=== PATIENT | male | born 1965 | race Caucasian/White ===

== ENCOUNTER 2018-09-12 20:06 | Inpatient (IN) | payer BC ==
[~2018-09-12] VITALS: Ht 180.3 cm; Wt 92.6 kg
[2018-09-12 20:07] VITALS: Ht 180.3 cm; Wt 92.6 kg
[2018-09-12 20:44] LABS: BASOPHIL % 0.2 % (0-2); PLATELET COUNT 303 x10^3mcL (130-400); RED CELL DISTRIBUTION WIDTH 13.8 % (11.5-14.5)
[2018-09-12 20:51] LABS: CARBON DIOXIDE 24.7 mmol/L (21-32); CHLORIDE SERUM 100 mmol/L (98-107); POTASSIUM SERUM 3.8 mmol/L (3.5-5.1); SODIUM SERUM 134 mmol/L (136-145)
[2018-09-12] MEDS ORDERED: METFORMIN HYDR500 M1 PO (20:51)
[2018-09-12 21:04] LABS: ALKALINE PHOSPHATASE 88 U/L (46-116); BILIRUBIN TOTAL 0.61 mg/dL (0.20-1.00)
[2018-09-12 21:18] LABS: ALT/SGPT 24 U/L (16-63)
[2018-09-12 21:19] LABS: CHOLESTEROL 146 mg/dL (<200); GLUCOSE SERUM 392 mg/dL (74-106)
[2018-09-12 21:26] LABS: CHOLESTEROL/HDL RATIO 6.3; HDL CHOLESTEROL 23 mg/dL (40-60); TRIGLYCERIDES 1409 mg/dL (<150)
[2018-09-12 21:34] LABS: AMPHETAMINE QUAL UR NONE DETECTED (See below)
[2018-09-12 21:41] LABS: CREATININE SERUM 0.9 mg/dL (0.7-1.3); GFR1 > 60 mL/min
[2018-09-12 21:42] LABS: AST/SGOT 41 U/L (15-37); CALCIUM 7.9 mg/dL (8.5-10.1)
[2018-09-12 22:14] LABS: ALBUMIN 3.4 g/dL (3.4-5.0); TOTAL PROTEIN, SERUM 7.4 g/dL (6.4-8.2)
[2018-09-12 23:44] VITALS: BP 140/86
[2018-09-13 05:44] VITALS: BP 114/69
[2018-09-13 06:48] LABS: CARBON DIOXIDE 24.8 mmol/L (21-32); CHLORIDE SERUM 101 mmol/L (98-107); POTASSIUM SERUM 3.7 mmol/L (3.5-5.1); SODIUM SERUM 134 mmol/L (136-145)
[2018-09-13 06:49] LABS: ALKALINE PHOSPHATASE 71 U/L (46-116); BILIRUBIN TOTAL 0.5 mg/dL (0.20-1.00); CALCIUM 8.1 mg/dL (8.5-10.1); CREATININE SERUM 0.9 mg/dL (0.7-1.3); GFR1 > 60 mL/min; GLUCOSE SERUM 261 mg/dL (74-106)
[2018-09-13 07:31] LABS: ALBUMIN 3.1 g/dL (3.4-5.0); TOTAL PROTEIN, SERUM 14.2 g/dL (6.4-8.2)
[2018-09-13 07:44] LABS: AST/SGOT 23 U/L (15-37)
[2018-09-13 09:03] LABS: ALT/SGPT 18 U/L (16-63)
[2018-09-13 09:09] VITALS: BP 116/71
[2018-09-13 13:39] VITALS: BP 117/63
[2018-09-13 17:46] VITALS: BP 110/65
[2018-09-13 20:02] VITALS: BP 103/65
[2018-09-14 05:07] VITALS: BP 103/60
[2018-09-14 07:07] LABS: ALKALINE PHOSPHATASE 66 U/L (46-116); ALT/SGPT 21 U/L (16-63); AST/SGOT 15 U/L (15-37); BILIRUBIN TOTAL 0.4 mg/dL (0.20-1.00); CALCIUM 8.5 mg/dL (8.5-10.1); CARBON DIOXIDE 27.1 mmol/L (21-32); CHLORIDE SERUM 103 mmol/L (98-107); CREATININE SERUM 0.9 mg/dL (0.7-1.3); GFR1 > 60 mL/min; GLUCOSE SERUM 161 mg/dL (74-106); SODIUM SERUM 139 mmol/L (136-145); TOTAL PROTEIN, SERUM 6.8 g/dL (6.4-8.2)
[2018-09-14 07:08] LABS: ALBUMIN 3.2 g/dL (3.4-5.0)
[2018-09-14 09:30] VITALS: BP 111/55
[2018-09-14 13:28] VITALS: BP 116/74
[2018-09-14 17:11] VITALS: BP 133/72
[2018-09-14 18:16] VITALS: BP 133/72
== END 2018-09-14 18:51 | disposition home or self-care (01) | DRG 303 ==
LOC: ED 20:06 → DU 22:21
PROVIDERS: Emergency Medicine; Internal Medicine Pulmonary Disease
DX: I25.10 Atherosclerotic heart disease of native coronary artery without angina pectoris (principal); E78.1 Pure hyperglyceridemia; E11.65 Type 2 diabetes mellitus with hyperglycemia; I10 Essential (primary) hypertension; E66.9 Obesity, unspecified; Z87.891 Personal history of nicotine dependence; Z68.29 Body mass index [BMI] 29.0-29.9, adult
CPT/HCPCS: 82962; 83880; A9500; J1644; J1815; J2785; J7030; Q0092

== ENCOUNTER 2019-10-29 00:54 | Emergency (ER) | payer BC ==
[~2019-10-29] VITALS: Ht 180.3 cm; Wt 93.4 kg
[~2019-10-29 00:54] MED LIST: METFORMIN HYDR500 M1 PO
[2019-10-29 01:31] VITALS: Ht 180.3 cm; Wt 93.4 kg
[2019-10-29 02:37] LABS: BASOPHIL % 0.8 % (0-2); PLATELET COUNT 292 x10^3mcL (130-400); RED CELL DISTRIBUTION WIDTH 12.9 % (11.5-14.5)
[2019-10-29 02:47] LABS: CALCIUM 8.9 mg/dL (8.5-10.1); CARBON DIOXIDE 29.4 mmol/L (21-32); CHLORIDE SERUM 97 mmol/L (98-107); GFR1 > 60 mL/min; GLUCOSE SERUM 210 mg/dL (74-106); POTASSIUM SERUM 3.4 mmol/L (3.5-5.1); SODIUM SERUM 134 mmol/L (136-145)
[2019-10-29 02:51] LABS: ALBUMIN 3.6 g/dL (3.4-5.0); ALKALINE PHOSPHATASE 76 U/L (46-116); ALT/SGPT 49 U/L (16-63); AST/SGOT 24 U/L (15-37); BILIRUBIN TOTAL 0.43 mg/dL (0.20-1.00); TOTAL PROTEIN, SERUM 7.5 g/dL (6.4-8.2)
[2019-10-29 07:43] VITALS: BP 129/80
== END 2019-10-29 04:58 | disposition home or self-care (01) ==
LOC: ED 00:54
DX: E11.65 Type 2 diabetes mellitus with hyperglycemia (principal)
CPT/HCPCS: 36415; 82962; Q0092